=== PATIENT | female | born 2000 | race Caucasian/White ===

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

== ENCOUNTER → 2022-02-02 | Outpatient (CLI) | payer OTHER | LOC: COL.RAD 15:35 | DX: S09.90XA Unspecified injury of head, initial encounter (principal) ==